=== PATIENT | male | born 1965 | race Caucasian/White ===

== ENCOUNTER 2016-07-03 12:48 | Outpatient (CLI) | payer OTHER ==
[~2016-07-03 12:48] MED LIST: ASPIRIN ADULT L81 M1 PO
--- NOTE | 2016-07-04 08:54 | DIAGNOSTIC IMAGING REPORT ---
REFERRING PHYSICIAN/PROVIDER: Dr. Robertson CONSULTING ESTATE PLANNING ATTORNEY: Mark Mcmanus MD PROCEDURE: 2D echo, M-mode and complete color and flow Doppler interrogation TECHNICAL QUALITY: Good INDICATION: VALVULAR HEART DISEASE INTERPRETATIONS: CHAMBERS: LEFT ATRIUM: Moderate left atrial dilation with LA volume index 34.4 mL/m2. LEFT VENTRICLE: Normal left ventricular size. Asymmetric septal hypertrophy without LVOT obstruction. EF 61%. No wall motion abnormalities. Indeterminate diastolic function. RIGHT ATRIUM: Normal right atrial size. RIGHT VENTRICLE: Normal right ventricular size and systolic function. VALVES: All valves nonrheumatic unless otherwise indicated. AORTIC VALVE: Trileaflet aortic valve. No aortic stenosis. No aortic regurgitation. MITRAL VALVE: S/P mitral valve repair. Mild mitral regurgitation. Mild mitral stenosis with mean gradient 3 mmHg, and MVA 1.47 cm2 by PHT. TRICUSPID VALVE: Trace tricuspid regurgitation. Unable to estimate RVSP due to inadequate tricuspid regurgitation jet. PULMONIC VALVE: Trace pulmonic regurgitation with multiple jets present. MISCELLANEOUS: No pericardial effusion. HEMODYNAMICS: Normal IVC size, unable to see IVC collapse. IMPRESSION: 1. Normal left ventricular size and systolic function, EF 61%. No wall motion abnormalities. 2. Indeterminate diastolic function. 3. S/P mitral valve repair with mild mitral stenosis, mean gradient 3 mmHg, MVA 1.47 cm2 and mild mitral regurgitation. 4. Normal right ventricular size and systolic function. 5. Unable to estimate pulmonary artery systolic pressure due to inadequate tricuspid regurgitation jet.
== END 2016-07-03 23:00 ==
LOC: US SRH 12:48
DX: I34.0 Nonrheumatic mitral (valve) insufficiency (principal); Z95.2 Presence of prosthetic heart valve